=== PATIENT | female | born 1950 | race Caucasian/White ===

== ENCOUNTER 2019-02-15 16:00 | Emergency (ER) | payer OTHER ==
[2019-02-15] MEDS ORDERED: NS(*) 0.9% 1000 ML BAG 1,000 ML IV ONE (16:20)
[2019-02-15] MEDS ORDERED: IOPAMIDOL 76% 150 ML INFUS BTL 150 ML ONE (16:42)
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
[2019-02-15] MEDS ORDERED: DIPHTH/TETANUS/ACEL. PERTUSSIS IM ONLY ONE (16:45)
[2019-02-15 16:59] LABS: PLATELET COUNT, AUTOMATED 197 K/uL (150-450)
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
[2019-02-15] MEDS ORDERED: KETOROLAC 15 MG/ML VIAL IVP ONE (17:40)
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
[2019-02-15 18:00] VITALS: BP 159/91
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
== END 2019-02-15 18:38 | disposition home or self-care (01) ==
LOC: ER 16:52
DX: S13.4XXA Sprain of ligaments of cervical spine, initial encounter (principal); R04.0 Epistaxis; S00.91XA Abrasion of unspecified part of head, initial encounter; S70.02XA Contusion of left hip, initial encounter; V87.7XXA Person injured in collision between other specified motor vehicles (traffic), initial encounter
CPT/HCPCS: 36415; 70450; 71260; 72125; 72170; 74177; 80320; 83690; 85025; 86850; 86900; 86901; 90471; 90715; 93005; 96361; 96374; 99285; J1885; J7030; L0172; Q9967; 82040; 82247; 82310; 82374; 82435; 82565; 82947; 84075; 84132; 84155; 84295; 84450; 84460; 84520

== ENCOUNTER → 2019-02-15 | Outpatient (CLI) | payer OTHER | LOC: AMB 15:40 | PROVIDERS: ATTEND Nurse Practitioner | DX: M54.2 Cervicalgia (principal); S00.01XA Abrasion of scalp, initial encounter; V49.9XXA Car occupant (driver) (passenger) injured in unspecified traffic accident, initial encounter | CPT/HCPCS: A0425; A0429 ==